=== PATIENT | male | born 1995 | race Caucasian/White ===

== ENCOUNTER 2016-07-17 06:25 | Day surgery (SDC) ==
[2016-07-17] MEDS ORDERED: LR 1,000 ML ONE ×2 (07:57→10:44)
[2016-07-17] MEDS ORDERED: KEFZOL 1 GM/D5W 50 ML ONE (07:57)
[2016-07-17] MEDS ORDERED: MANNITOL ONE (10:43)
[2016-07-17] MEDS ORDERED: ZOFRAN ONE (10:43)
[2016-07-17] MEDS ORDERED: XYLOCAINE-MPF 2% ONE (10:44)
[2016-07-17] MEDS ORDERED: DECADRON ONE (10:44)
[2016-07-17] MEDS ORDERED: NORCO-10 ONE (11:17)
[2016-07-17] MEDS ORDERED: FLOMAX ONE (11:17)
[2016-07-17 11:51] VITALS: BP 145/80
[2016-07-17] MEDS ORDERED: DIPRIVAN 1% ONE (13:08)
--- NOTE | 2016-07-17 18:21 | OPERATIVE NOTE ---
PROCEDURE DATE: 07/17/2016 SURGEON: Deangelo Alva MD. PREOPERATIVE DIAGNOSIS: Right proximal ureteral stone with moderate obstruction and right flank. POSTOPERATIVE DIAGNOSIS: Right proximal ureteral stone with moderate obstruction and right flank. PROCEDURE PERFORMED: Extracorporeal shockwave lithotripsy of the right proximal ureteral stone. ANESTHESIA: General via laryngeal mask. FINDINGS: An approximate 8 mm right proximal ureteral stone. INDICATION FOR PROCEDURE: This 21-year-old male with history of renal lithiasis developed severe right flank pain with nausea and vomiting. A CT stone search revealed a right proximal ureteral stone with moderate obstruction. DESCRIPTION OF PROCEDURE: After informed consent was obtained from the patient and him receiving IV antibiotics, he was taken the main OR and placed in the supine position. General anesthesia via laryngeal mask was achieved. He was then placed in the proper position for right extracorporeal shockwave lithotripsy. The stone received 3000 shocks, starting at energy level 1, ramping to energy level 9. He received 12.5 g of mannitol at the start of the case. At completion the stone appeared well fragmented. Total fluoro time was 3 minutes and 22 seconds. He tolerated the procedure well. Estimated blood loss was 0. He was taken to the recovery room in good condition.
== END 2016-07-17 12:05 | disposition home or self-care (01) ==
LOC: OR 06:25
PROVIDERS: ATTEND Urology
DX: N20.1 Calculus of ureter (principal)
CPT/HCPCS: J0690; J1100; J2150; J2405; J7120